=== PATIENT | female | born 1950 | race Caucasian/White ===

== ENCOUNTER 2017-03-05 14:12 | Emergency (ER) | payer MEDICAID ==
[2017-03-05 14:19] VITALS: BMI 26.6
[2017-03-05 14:22] VITALS: RESP 18; O2SAT 98
[2017-03-05] MEDS ORDERED: Sodium Chloride 0.9% 1,000 ML IV ONE (14:47)
--- NOTE | 2017-03-05 14:58 | C.PDOC ---
History Of Present Illness Patient is a 66 y/o female that presents to the ED for evaluation n/v/d and dizziness after taking Tramadol last night at 23:00 for her back pain.Sx started around 430am. Notes 3 episodes of vomiting today. Pt states she took Tramadol 8 months ago, and had also developed diarrhea at that time. Last night she took tramadol for back pain which is chronic. PMD: Lorie Cook Time Seen by Provider: 03/05/17 14:22 Chief Complaint (Nursing): GI Problem History Per: Patient History/Exam Limitations: no limitations Onset/Duration Of Symptoms: Days (1) Current Symptoms Are (Timing): Still Present Quality Of Discomfort: "Pain" Previous Symptoms: Back Pain, Chronic Pain. denies: Prior Injury, Prior Surgery Associated Symptoms: None. denies: Incontinence, New Weakness, New Numbness Exacerbating Factor(s): Nothing Recent travel outside of the [place]: No Additional History Per: Patient Past Medical History Reviewed: Historical Data, Nursing Documentation, Vital Signs Vital Signs: Last Vital Signs Temp 97.6 F 03/05/17 16:17 Pulse 78 03/05/17 16:17 Resp 18 03/05/17 16:17 BP 130/70 03/05/17 16:17 Pulse Ox 98 03/05/17 16:17 - Medical History PMH: Hypercholesterolemia Family History: States: No Known Family Hx - Social History Hx Tobacco Use: No Hx Alcohol Use: No Hx Substance Use: No - Immunization History Hx Tetanus Toxoid Vaccination: No Hx Influenza Vaccination: Yes Hx Pneumococcal Vaccination: No Review Of Systems Except As Marked, All Systems Reviewed And Found Negative. Constitutional: Negative for: Fever, Chills Cardiovascular: Negative for: Chest Pain Respiratory: Negative for: Shortness of Breath Gastrointestinal: Positive for: Nausea, Vomiting, Diarrhea. Negative for: Abdominal Pain Genitourinary: Negative for: Dysuria, Frequency, Incontinence, Hematuria Musculoskeletal: Positive for: Back Pain Skin: Negative for: Rash Neurological: Positive for: Dizziness. Negative for: Weakness, Numbness, Headache Physical Exam - Physical Exam Appears: Non-toxic, No Acute Distress Skin: Warm, Dry Head: Atraumatic, Normacephalic Oral Mucosa: Moist Neck: Normal ROM, Supple Cardiovascular: Rhythm Regular, No Murmur Respiratory: No Decreased Breath Sounds, No Accessory Muscle Use, No Rales, No Rhonchi, No Wheezing Gastrointestinal/Abdominal: Soft, No Tenderness Pulses: Left Radial: Normal, Right Radial: Normal, Left Dorsalis Pedis: Normal, Right Dorsalis Pedis: Normal Neurological/Psych: Oriented x3, Normal Motor, Normal Sensation, Other (no focal deficits) ED Course And Treatment - Laboratory Results Result Diagrams: 03/05/17 15:15 03/05/17 15:15 O2 Sat by Pulse Oximetry: 98 (on RA) Pulse Ox Interpretation: Normal Progress Note: Labs, EKG, CXR ordered and reviewed. Pt was given IV fluids, and Zofran inj. Medical Decision Making Medical Decision Making: ecg- nsr 73, nl axis, nl int no acute ischemia FINDINGS: LUNGS: No active pulmonary disease. PLEURA: No significant pleural effusion identified, no pneumothorax apparent. CARDIOVASCULAR: No radiographic findings to suggest acute or significant cardiovascular disease. OSSEOUS STRUCTURES: No significant abnormalities. VISUALIZED UPPER ABDOMEN: Normal. OTHER FINDINGS: None. IMPRESSION: No active disease. 1553 pt resting quietly, no distress, reports feeling better. I disc results, plan for rx, follow up and rtr. Disposition - Disposition Referrals: Samm Renee MD [Medical Doctor] - Disposition: HOME/ ROUTINE Disposition Time: 15:57 Condition: IMPROVED Additional Instructions: Please follow up with your doctor next week. Return to the ER for any worsening symptoms or for any other concerns. Prescriptions: Lidocaine 5% [Lidoderm] 1 ea TD DAILY PRN #10 patch PRN Reason: back pain Nitrofurantoin Macrocrystals [Macrobid] 100 mg PO BID #14 cap Instructions: Urinary Tract Infection in Women (ED) Forms: Gen Discharge Inst Urdu Print Language: [place] - Clinical Impression Clinical Impression: UTI (urinary tract infection), Medication side effect - Scribe Statement The provider has reviewed the documentation as recorded by the Brisa Cooper Provider Attestation: All medical record entries made by the Brisa were at my direction and personally dictated by me. I have reviewed the chart and agree that the record accurately reflects my personal performance of the history, physical exam, medical decision making, and the department course for this patient. I have also personally directed, reviewed, and agree with the discharge instructions and disposition.
--- NOTE | 2017-03-05 15:04 | RAD ---
HISTORY: Dizziness. Portable study 14:43. COMPARISON: No prior. FINDINGS: LUNGS: No active pulmonary disease. PLEURA: No significant pleural effusion identified, no pneumothorax apparent. CARDIOVASCULAR: No radiographic findings to suggest acute or significant cardiovascular disease. OSSEOUS STRUCTURES: No significant abnormalities. VISUALIZED UPPER ABDOMEN: Normal. OTHER FINDINGS: None. IMPRESSION: No active disease.
[2017-03-05] MEDS ORDERED: Sodium Chloride 0.9% 1,000 ML ONE (15:05)
[2017-03-05 15:29] LABS: RBC URINE 11 /hpf (0-3); URINE BILIRUBIN NEGATIVE (NEGATIVE); URINE BLOOD NEGATIVE (NEGATIVE); URINE COLOR Yellow (YELLOW); URINE GLUCOSE (UA) NORMAL (Normal); URINE KETONE 1+ mg/dL (NEGATIVE); URINE LEUKOCYTE ESTERASE NEG Leu/uL (Negative); URINE PROTEIN NEGATIVE (NEGATIVE); URINE UROBILINOGEN NORMAL mg/dL (0.2-1.0); WBC URINE 10 /hpf (0-5)
[2017-03-05 15:31] LABS: BASO % 0.2 % (0.0-2.0); HEMATOCRIT 37.2 % (34.0-47.0); LYMPH # 0.9 K/uL (1.0-4.3); LYMPH % 8.3 % (20.0-40.0); MEAN CELL VOLUME 95.7 fL (81.0-99.0); MEAN CORPUSCULAR HEMOGLOBIN 32.2 pg (27.0-31.0); MEAN CORPUSCULAR HGB CONC 33.6 g/dL (33.0-37.0); MEAN PLATELET VOLUME 9.3 fL (7.2-11.7); MONO # 0.2 K/uL (0.0-0.8); MONO % 2.2 % (0.0-10.0); PLATELET COUNT 226 K/uL (130-400); WHITE BLOOD COUNT 11.2 K/uL (4.8-10.8)
[2017-03-05 15:32] LABS: CHLORIDE 98 mmol/L (98-107)
[2017-03-05 15:33] LABS: POTASSIUM 3.8 mmol/L (3.6-5.2); SODIUM 136 mmol/L (132-148)
[2017-03-05 15:35] LABS: ALB/GLOB RATIO 1.4 (1.0-2.1); ALKALINE PHOSPHATASE 87 U/L (38-126); ALT/SGPT 23 U/L (9-52); AST/SGOT 26 U/L (14-36); BILIRUBIN,TOTAL 0.8 mg/dL (0.2-1.3); BLOOD UREA NITROGEN 13 mg/dL (7-17); CARBON DIOXIDE 25 mmol/L (22-30); GFR AFRICAN-AMERICAN > 60; TOTAL PROTEIN 7.5 g/dL (6.3-8.3)
[2017-03-05 15:36] LABS: GLUCOSE,RANDOM 124 mg/dL (65-105)
[2017-03-05 15:58] LABS: NEUTROPHIL 89 % (50-75); TOTAL CELLS COUNTED 100
[2017-03-05 16:20] VITALS: BP 130/70; PULSE 78; TEMP 97.6
--- NOTE | 2017-03-08 12:15 | CARD ---
APPROVED REPORT EKG Measurement Heart [id number] <Conclusion> Normal sinus rhythm Normal ECG
== END 2017-03-05 16:19 | disposition home or self-care (01) ==
LOC: C.ER 14:12
DX: N39.0 Urinary tract infection, site not specified (principal); T50.995A Adverse effect of other drugs, medicaments and biological substances, initial encounter; Y92.89 Other specified places as the place of occurrence of the external cause
CPT/HCPCS: 71010; 80053; 81001; 84484; 85025; 93005; 96361; 96374; 99285; J2405; J7040

== ENCOUNTER 2017-12-25 13:56 | Emergency (ER) | payer SELFPAY ==
[2017-12-25 13:57] VITALS: BMI 26.6
[2017-12-25] MEDS ORDERED: Lidocaine 5% Patch TD STA (14:33)
[2017-12-25] MEDS ORDERED: Lidocaine 5% Patch TD ONE (14:47)
--- NOTE | 2017-12-25 14:59 | C.PDOC ---
History Of Present Illness 67 year old female presents to the ED for evaluation of left lower back pain which began around 1 week ago. Patient states her pain radiates down the lateral aspect of her left leg and stops at her knee. She states symptoms are worse with sitting and reports questionable tingling. Patient denies prior history of the same, trauma, falls, urinary/bowel incontinence. Time Seen by Provider: 12/25/17 14:14 Chief Complaint (Nursing): Back Pain History Per: Patient History/Exam Limitations: no limitations Onset/Duration Of Symptoms: Other (1 week) Current Symptoms Are (Timing): Still Present Quality Of Discomfort: "Pain" Previous Symptoms: Back Pain Associated Symptoms: denies: Incontinence, New Weakness, New Numbness Additional History Per: Patient Past Medical History Reviewed: Historical Data, Nursing Documentation, Vital Signs Vital Signs: Last Vital Signs Temp 97.8 F 12/25/17 15:58 Pulse 71 12/25/17 15:58 Resp 18 12/25/17 15:58 BP 115/74 12/25/17 15:58 Pulse Ox 99 12/25/17 20:07 - Medical History PMH: Hypercholesterolemia Surgical History: No Surg Hx Family History: States: Unknown Family Hx - Social History Hx Tobacco Use: No Hx Alcohol Use: No Hx Substance Use: No - Immunization History Hx Tetanus Toxoid Vaccination: No Hx Influenza Vaccination: Yes Hx Pneumococcal Vaccination: No Review Of Systems Musculoskeletal: Positive for: Back Pain (left, lower ) Physical Exam - Physical Exam Appears: Non-toxic, No Acute Distress Skin: Normal Color, Warm, Dry Head: Atraumatic, Normacephalic Eye(s): bilateral: Normal Inspection Oral Mucosa: Moist Neck: Supple Chest: Symmetrical, No Deformity, No Tenderness Cardiovascular: Rhythm Regular, No Murmur Respiratory: Normal Breath Sounds, No Rales, No Rhonchi, No Wheezing Gastrointestinal/Abdominal: Soft, No Tenderness, No Guarding, No Rebound Back: Other (mild midline tenderness, left-sided lumbar tenderness, sciatic notch tenderness ) Extremity: Normal ROM, No Pedal Edema, Capillary Refill (less than 2 seconds ) Pulses: Left Dorsalis Pedis: Normal, Right Dorsalis Pedis: Normal Neurological/Psych: Oriented x3, Normal Speech, Normal Cognition ED Course And Treatment O2 Sat by Pulse Oximetry: 99 (on RA ) Pulse Ox Interpretation: Normal - Other Rad lumbar spine XR X-Ray: Interpreted by Me, Viewed By Me, Read By Radiologist Interpretation: PROCEDURE: Radiographs of the Lumbar Spine. HISTORY: midline lumbar pain, no trauma. COMPARISON: No prior. FINDINGS: BONES: The vertebral bodies are maintained height. The transverse processes and posterior elements are intact. There is incidental note made of a lumbarized S1 vertebra. DISC SPACES: Unremarkable. OTHER FINDINGS: None. IMPRESSION: Unremarkable radiographs of the lumbar spine. Progress Note: LS Spine AP/LAT ordered and reviewed. Lidoderm TD, Toradol IM, Tylenol PO administered. Medical Decision Making Medical Decision Making: pt feeling much better. lumbar xray neg for fx. pt now reports she has gone for pt in past for similar pain. d/c home with nsaids tylenol and pmd f/u Disposition Counseled Patient/Family Regarding: Studies Performed, Diagnosis, Need For Followup, Rx Given - Disposition Referrals: Lorie Cook [Staff Provider] - Disposition: HOME/ ROUTINE Disposition Time: 15:34 Additional Instructions: Por favor tome Tylenol e ibuprofeno segn lo prescrito. Qutate el apndice del dolor en 11 horas. tambin puede usar topical over the counter aspercream. Merari un seguimiento con el Dr. Cook en unos mcclure, recomiende la referencia a terapia fsica. Please take Tylenol and ibuprofen as prescribed. Take pain aptch off in 11 hours. you may also use topical over the counter aspercream. Follow up with Dr Cook in a few days, recommend referral to physical therapy. Prescriptions: Acetaminophen [Tylenol 325mg tab] 650 mg PO Q6 #30 tab Ibuprofen [Motrin] 600 mg PO TID #30 tab Instructions: Sciatica (DC), Sciatica Exercises Forms: Gen Discharge Inst Malay, [employer] (Malay) Print Language: [place] - Clinical Impression Clinical Impression: Sciatica - PA / MEASUREMENT PSYCHOLOGIST / Resident Statement MD/DO has reviewed & agrees with the documentation as recorded. - Scribe Statement The provider has reviewed the documentation as recorded by the Scribe (Kirstie Cooper) All medical record entries made by the Scribe were at my direction and personally dictated by me. I have reviewed the chart and agree that the record accurately reflects my personal performance of the history, physical exam, medical decision making, and the department course for this patient. I have also personally directed, reviewed, and agree with the discharge instructions and disposition.
--- NOTE | 2017-12-25 15:23 | RAD ---
PROCEDURE: Radiographs of the Lumbar Spine. HISTORY: midline lumbar pain, no trauma COMPARISON: No prior. FINDINGS: BONES: The vertebral bodies are maintained height. The transverse processes and posterior elements are intact. There is incidental note made of a lumbarized S1 vertebra. DISC SPACES: Unremarkable. OTHER FINDINGS: None. IMPRESSION: Unremarkable radiographs of the lumbar spine.
[2017-12-25 15:58] VITALS: BP 115/74; PULSE 71; RESP 18; TEMP 97.8
[2017-12-25 16:14] VITALS: O2SAT 99
== END 2017-12-25 16:09 | disposition home or self-care (01) ==
LOC: C.ER 13:56
DX: M54.30 Sciatica, unspecified side (principal)
CPT/HCPCS: 72100; 96372; 99283; J1885